=== PATIENT | male | born 1945 | race Caucasian/White ===

== ENCOUNTER → 2017-10-23 | Outpatient (CLI) | payer MEDICARE, BC ==
[~2017-10-23] MED LIST: REGADENOSON 0.4 MG/5 ML DISP.SYRIN IVP ONE
== END | disposition home or self-care (01) ==
LOC: NM 07:24
PROVIDERS: ATTEND Internal Medicine Interventional Cardiology
DX: R07.9 Chest pain, unspecified (principal); E11.9 Type 2 diabetes mellitus without complications; I10 Essential (primary) hypertension
CPT/HCPCS: 78452; A9502; J2785

== ENCOUNTER 2019-03-04 11:30 | Inpatient (IN) | payer MEDICARE, BC ==
[~2019-03-04] VITALS: Ht 177.8 cm; Wt 87.1 kg
--- NOTE | 2019-03-04 11:40 | NUR ---
PT BIBSELF FOR CP X 1 WEEK; PT AAOX4, NOT IN ANY DISTRESS, NAD NOTED, VSS, PT TO BED 9, PT ON MONITOR
--- NOTE | 2019-03-04 11:43 | NUR ---
DR CINTRON AT BEDSIDE FOR EVAL.
[2019-03-04 11:52] LABS: BASOPHILS % (AUTO) 0.2 % (0.0-2.0); EOSINOPHILS % (AUTO) 0.1 % (0.0-6.0); HEMATOCRIT 42 % (39-51); HEMOGLOBIN 14.5 g/dL (13.5-17.5); LYMPHOCYTES # (AUTO) 0.6 /CMM (0.8-4.8); LYMPHOCYTES % (AUTO) 4.1 % (20.0-44.0); MEAN CORPUSCULAR HGB CONC 35 g/dl (31.0-36.0); MEAN CORPUSCULAR VOLUME 100 fL (80-96); MONOCYTES # (AUTO) 1.5 /CMM (0.1-1.30); MONOCYTES % (AUTO) 10.9 % (2.0-12.0); NEUTROPHILS # (AUTO) 11.6 /CMM (1.8-8.9); NEUTROPHILS % (AUTO) 84.7 % (43.0-81.0); PLATELET COUNT (AUTO) 290 /CMM (150-450); RED BLOOD CELL COUNT(AUTO) 4.18 MIL/uL (4.5-6.0); WHITE BLOOD COUNT (AUTO) 13.8 K/uL (4.3-11.0)
[2019-03-04 12:00] LABS: CALCIUM, SERUM 9.7 mg/dL (8.5-10.1); CARBON DIOXIDE 21 mmol/L (21-32); CHLORIDE 92 mmol/L (98-107); CREATININE 2.7 mg/dL (0.6-1.3); GLUCOSE 201 mg/dL (74-106); SODIUM SERUM 129 mmol/L (136-145); UREA NITROGEN, BLOOD 42 mg/dL (7-18)
[2019-03-04] MEDS ORDERED: IV NS 0.9% 1,000 ML BAG IV ONE (12:00)
[2019-03-04 12:05] LABS: ALANINE AMINOTRANSFERASE 30 U/L (12-78); ALBUMIN 3.3 g/dL (3.4-5.0); ALKALINE PHOSPHATASE 59 U/L (46-116); ASPARTATE AMINOTRANSFERASE 36 U/L (15-37); BILIRUBIN,DIRECT 0.4 mg/dL (0.0-0.2); BILIRUBIN,TOTAL 1.9 mg/dL (0.2-1.0); TOTAL PROTEIN, SERUM 8.5 g/dL (6.4-8.2)
[2019-03-04] MEDS ORDERED: METF-440 PO (12:11)
[2019-03-04] MEDS ORDERED: ZOLP12.542 PO (12:11)
[2019-03-04] MEDS ORDERED: METO-358 PO (12:11)
[2019-03-04] MEDS ORDERED: BENA20TA9 PO (12:11)
[2019-03-04] MEDS ORDERED: TAMS-12 PO (12:11)
[2019-03-04] MEDS ORDERED: PRAV80TA21 PO (12:11)
[2019-03-04] MEDS ORDERED: ASPI-1169 PO (12:12)
[2019-03-04] MEDS ORDERED: INSU100V7 SQ (12:12)
[2019-03-04] MEDS ORDERED: PSYL1PAC8 PO (12:12)
[2019-03-04] MEDS ORDERED: RIFA550T PO (12:13)
--- NOTE | 2019-03-04 12:49 | NUR ---
CALLED FOR TELE BED, TURNED IN MOVE SHEET
[2019-03-04] MEDS ORDERED: ASPIRIN 325 MG TABLET ONE (12:58)
[2019-03-04] MEDS ORDERED: ASPIRIN 325 MG TABLET PO ONE (13:00)
--- NOTE | 2019-03-04 15:19 | NUR ---
telegraphic instrument supervisor notes received report from nichelle rowland.
--- NOTE | 2019-03-04 15:37 | NUR ---
REPORT GIVEN TO EYAD AGUILAR FOR ORQUIDEA; PT WILL BE TRANSPORTED TO 1ST FLOOR VIA ACLS PROTOCOL
--- NOTE | 2019-03-04 15:40 | NUR ---
CHILD PROTECTIVE INVESTIGATOR NOTES RECEIVED PT IN 119-1. PT'S IV BAND PLACED, TELE MONITOR. PT O2 SAT 98%. PT A/OX3. AMBULATORY WITH STEADY GAIT. SKIN INTACT. LAC #[address] INTACT [address]ENT. [address] SOL'S OFFICE FOR ADMITTING ORDERS.
[2019-03-04 16:00] VITALS: BP 100/58
--- NOTE | 2019-03-04 18:00 | NUR ---
DATA VIRTUALIZATION CONSULTANT NOTES ADMITTING ORDERS RECEIVED FROM MARIA ELENA LEBRON.
[2019-03-04] MEDS ORDERED: ZOLPIDEM TARTRATE 10 MG TABLET PO PRN (19:00)
[2019-03-04] MEDS ORDERED: NITROGLYCERIN 0.4 MG/TAB BOTTLE SL PRN (19:00)
[2019-03-04] MEDS ORDERED: RIFAXIMIN 550 MG TABLET PO PRN (19:00)
[2019-03-04] MEDS ORDERED: METOPROLOL SUCCINATE 50 MG TAB.SR.24H PO SCH (19:00)
--- NOTE | 2019-03-04 19:00 | NUR ---
BOAT CAMP OPERATOR NOTES ENDORSED PT TO PM NURSE FOR ORQUIDEA. PT STABLE. NO C/O CHEST PAIN AT THIS TIME. PT NOT IN RESP DISTRESS ON ROOM AIR.
--- NOTE | 2019-03-04 19:20 | NUR ---
COMMERCIAL REAL ESTATE LENDER NOTE PATIENT RECEIVED IN BED A/O X 4. PATIENT DENIES ANY CHEST PAIN/SOB/ WOB/ AT THIS TIME. NO N/V/D/C. PATIENT HAS NO S/S OF ACUTE DISTRESS AND DENIES PAIN OR DISCOMFORT AT THIS TIME. WENT OVER GOALS AND PLAN OF CARE FOR TONIGHT, PATIENT VERBALIZES UNDERSTANDING. PATIENT IS ORDERED TO HAV 2L NC 02, PATIENT REFUSES BUT IS SATURATION 98 ON RA. PATIENT HAS LAC 20 GAUGE NO S/S OF INFECTION OR INFILTRATION. RN WILL CONTINUE TO MONITOR. FOR CHANGES. BED IN LOWEST LOCKED POSITION SIDE RAILS UP X 2. PT INSTRUCTED ON USE OF CALL LIGHT AND POC AND GOALS FOR THE SHIFT.
[2019-03-04] MEDS ORDERED: INSULIN REGULAR, HUMAN 100 UNIT/ML 3 ML VIAL SQ PRN (19:30)
[2019-03-04] MEDS ORDERED: DEXTROSE 50%-WATER 50 ML DISP.SYRIN IV PRN (19:30)
[2019-03-04 20:00] VITALS: BP_SYST 125; BP_SYST 130; BP_DIAS 55; BP_DIAS 59
[2019-03-04] MEDS ORDERED: INSULIN GLARGINE, 100 UNIT/ML CARTRIDGE SQ SCH (22:00)
[2019-03-04] MEDS: BLOOD SUGAR DIAGNOSTIC 1 EACH STRIP VI SCH (22:32)
[2019-03-04] MEDS: *INSULIN REGULAR(HUMULIN R)HUM 100 UNIT/ML VIAL SQ PRN (22:46)
[2019-03-05] VITALS: BP 133/62
[2019-03-05 04:00] VITALS: BP 130/62
--- NOTE | 2019-03-05 06:24 | NUR ---
GOLD PROSPECTOR NOTE NO ACUTE CHANGES THROUGHOUT THE NIGHT, NO S/S OF DISTRESS. PATIENT SR ON THE MONITOR IN THE 90'S. PATIENT DENIES CHEST PAIN AT THIS TIME. ALL NEEDS MET. WILL ENDORSE POC TO AM FOR ORQUIDEA.
[2019-03-05 07:28] LABS: BASOPHILS % (AUTO) 0.3 % (0.0-2.0); EOSINOPHILS % (AUTO) 0.2 % (0.0-6.0); HEMATOCRIT 37 % (39-51); LYMPHOCYTES # (AUTO) 0.7 /CMM (0.8-4.8); LYMPHOCYTES % (AUTO) 8.3 % (20.0-44.0); MEAN CORPUSCULAR HGB CONC 35 g/dl (31.0-36.0); MEAN CORPUSCULAR VOLUME 99 fL (80-96); MONOCYTES # (AUTO) 1.2 /CMM (0.1-1.30); MONOCYTES % (AUTO) 13.9 % (2.0-12.0); NEUTROPHILS # (AUTO) 6.7 /CMM (1.8-8.9); NEUTROPHILS % (AUTO) 77.3 % (43.0-81.0); PLATELET COUNT (AUTO) 262 /CMM (150-450); RED BLOOD CELL COUNT(AUTO) 3.79 MIL/uL (4.5-6.0); WHITE BLOOD COUNT (AUTO) 8.7 K/uL (4.3-11.0)
[2019-03-05] MEDS: BLOOD SUGAR DIAGNOSTIC 1 EACH STRIP VI SCH (07:44)
[2019-03-05] MEDS: *INSULIN REGULAR(HUMULIN R)HUM 100 UNIT/ML VIAL SQ PRN (07:45)
[2019-03-05 07:53] LABS: ALANINE AMINOTRANSFERASE 67 U/L (12-78); ALBUMIN 2.8 g/dL (3.4-5.0); ALKALINE PHOSPHATASE 53 U/L (46-116); ASPARTATE AMINOTRANSFERASE 69 U/L (15-37); BILIRUBIN,TOTAL 0.9 mg/dL (0.2-1.0); CALCIUM, SERUM 9.4 mg/dL (8.5-10.1); CARBON DIOXIDE 24 mmol/L (21-32); CHLORIDE 97 mmol/L (98-107); CREATININE 1.7 mg/dL (0.6-1.3); GLUCOSE 140 mg/dL (74-106); POTASSIUM 4.1 mmol/L (3.5-5.1); SODIUM SERUM 132 mmol/L (136-145); TOTAL PROTEIN, SERUM 7.3 g/dL (6.4-8.2); UREA NITROGEN, BLOOD 38 mg/dL (7-18)
[2019-03-05 08:00] VITALS: BP 163/75
[2019-03-05 08:01] LABS: CHOLESTEROL 125 mg/dL (<200); HDL CHOLESTEROL 39 mg/dL (40-60); LDL 61 mg/dL (0-99); TRIGLYCERIDES 118 mg/dL (30-150)
--- NOTE | 2019-03-05 08:23 | NUR ---
GRAPPLE OPERATOR NOTE PATIENT RECEIVED IN BED A/O X 4. NO SOB OR ACUTE DISTRESS NOTED. NO N/V, CHEST PAIN OR CHOI. PATIENT VERBALIZES UNDERSTANDING. PATIENT IS ORDERED TO HAVE 2L NC 02, PATIENT REFUSES BUT IS SATURATION 97% ON RA. LAC #20 INTACT AND PATENT W/ NO S/S OF INFECTION OR INFILTRATION. SAFETY MEASURES IN PLACE. BED IN LOWEST LOCKED POSITION SIDE RAILS UP X 2. CALL LIGHT WITHIN REACH. WILL CONTINUE TO MONITOR. .
[2019-03-05] MEDS ORDERED: PSYLLIUM SEED 1 PKT PACKET PO SCH (09:00)
[2019-03-05] MEDS ORDERED: ASPIRIN EC 325 MG TABLET.DR PO SCH (09:00)
[2019-03-05] MEDS ORDERED: BENAZEPRIL HCL 20 MG TABLET PO SCH (09:00)
[2019-03-05] MEDS ORDERED: METFORMIN 500 MG TABLET PO SCH (09:00)
[2019-03-05] MEDS ORDERED: TAMSULOSIN 0.4 MG CAP.SR.24H PO SCH (09:00)
[2019-03-05] MEDS ORDERED: ATORVASTATIN 40 MG TABLET PO SCH (09:00)
[2019-03-05 09:11] LABS: CREATINE KINASE, TOTAL 52 U/L (39-308)
[2019-03-05 09:30] VITALS: BP 163/75
--- NOTE | 2019-03-05 11:37 | NUR ---
FIBERGLASS BOAT BUILDER DISCHRGE NOTE PATIENT DISCHARGED TO HOME AMBULATORY W/O ASSIST. PATIENT A/O X 4, AMBULATORY , V/S WNL. GAVE VERBAL DISCHARGE ORDER WITH NO MEDICATION CHANGES. NO SOB OR ACUTE DISTRESS NOTED. PATIENT VERBALIZES UNDERSTANDING OF MEDICATIONS. NO IV OR TELE MONITOR ON PATIENT. BELONGINGS LIST COMPLETED AND SIGNED. PATIENT D/C W/O INCIDENT.
== END 2019-03-05 11:30 | disposition home or self-care (01) | DRG 280 ==
LOC: ER 11:38 → TELE1 13:58 → MEDSG1 03-05 11:02
PROVIDERS: ADMIT Internal Medicine; ATTEND Internal Medicine
DX: I21.4 Non-ST elevation (NSTEMI) myocardial infarction (principal); N17.0 Acute kidney failure with tubular necrosis; I10 Essential (primary) hypertension; E11.9 Type 2 diabetes mellitus without complications; I95.9 Hypotension, unspecified; Z87.891 Personal history of nicotine dependence
CPT/HCPCS: 36415; 71045-TC; 80048-TC; 80053-TC; 80061-TC; 80076-TC; 82550-TC; 82962-TC; 84484-TC; 85025-TC; 87081-TC; G0378; J1815; J7030